=== PATIENT | male | born 1960 | race Caucasian/White ===

== ENCOUNTER → 2016-10-11 | Day surgery (SDC) | payer OTHER ==
[2016-09-26 10:22] VITALS: BMI 24.0
[~2016-10-11] VITALS: Ht 162.6 cm; Wt 65.0 kg
[~2016-10-11] MED LIST: ATROPINE SULFATE 0.1 MG/ML 5ML SYR IV PRN; BUPIVACAINE/EPINEPHRINE 0.5% MPF 1:200,000 30 ML VIAL ONE; CEFAZOLIN 2000 MG/60 ML D5W IV SCH; DEXAMETHASONE SOD INJ 4 MG/ML VIAL ONE; ESMOLOL HCL 10 MG/ML 10 ML VIAL ONE; EpHEDrine SULFATE INJ 50 MG/ML AMP IV PRN; FENTANYL CITRATE INJ 50 MCG/1 ML 2 ML VIAL IV PRN; FENTANYL CITRATE INJ 50 MCG/1 ML 2 ML VIAL ONE; GLYCOPYRROLATE INJ 0.2 MG/ML VIAL ONE; HEPARIN SOD 5000 UNIT/0.5 ML CARP SQ SCH; HYDR-5688 PO; HYDROCODONE/ACETAMOPHEN 5/325MG TAB PO PRN; HYDROmorphone INJ 1 MG/ML SYR IV PRN; KETOROLAC TROMETHAMINE 30 MG/ML VIAL IV. PRN; KETOROLAC TROMETHAMINE 30 MG/ML VIAL ONE; LABETALOL HCL IV 5 MG/ML 20ML IV PRN; LACTATED RINGER'S 1000ML 1,000 ML IV SCH; LIDOCAINE HCL 2% 2 ML VIAL (20MG/ML) ONE; MEPERIDINE HCL 25 MG/ML CARP IV PRN; MIDAZOLAM HCL 1 MG/ML 2ML VIAL ONE; NEOSTIGMINE METHYLSULFATE 5 MG/5 ML SYR ONE; ONDANSETRON INJ 2 MG/ML 2 ML VIAL IV PRN; ONDANSETRON INJ 2 MG/ML 2 ML VIAL ONE; PRLSR20 PO; PROPOFOL IV EMULSION 10 MG/ML 20 ML VIAL IV ONE; ROCURONIUM BROMID 50MG/5ML SYR ONE; SODIUM CHLORIDE 0.9% 1000ML 1,000 ML IV SCH
[2016-10-11 05:59] VITALS: BP 157/89; PULSE 49; TEMP 36.6; O2SAT 100; Ht 162.6 cm; Wt 65.0 kg
--- NOTE | 2016-10-11 06:44 | History and Physical ---
History & Physical Date Oct 11, 2016. Chief Complaint RUQ pain for several months. US shows gallstones History of Present Illness The patient is a 55 year old male with complaints of Additional History Hepatic Disease: No Endocrine Disorder: No Kidney Disease: No Hypertension: No Heart Disease: No Bleeding Tendencies: No Infectious Diseases: No Allergies Coded Allergies: No Known Allergies (Unverified , 10/11/16) Home Medications Scheduled Omeprazole (Prilosec), 20 MG PO QAM Physical Examination Skin: warm/dry Eyes: normal inspection, EOMI Head: normocephalic Neck: supple, no adenopathy Respiratory/Chest: normal breath sounds, no respiratory distress Cardiovascular: regular rate, rhythm Abdomen / GI: normal bowel sounds, non tender Extremities: normal inspection Neurologic/Psych: alert, oriented x 3 Diagnosis symptomatic cholecystitis discussed options. I do suspect symptoms are from gallstones discussed risks ok to proceed.
--- NOTE | 2016-10-11 07:16 | Discharge Instructions ---
Discharge Instructions Date of Service Oct 11, 2016. Admission Reason for Admission: Cholelithiasis Discharge Discharge Diagnosis / Problem: Cholelithiasis Discharge Goals Goal(s): Decrease discomfort, Improve function Activity Recommendations Activity Limitations: as noted below Lifting Limitations: no more than 10 pounds Exercise/Sports Limitations: as tolerated Shower/Bathe: tomorrow . Instructions / Follow-Up Instructions / Follow-Up Have surgical incisions checked post-operatively. If patient is able, please follow-up with Dr. Dominguez in the office in 1-2 weeks. Any questions, please contact Dr. Dominguez's office at [phone], Current Hospital Diet Patient's current hospital diet: Discharge Diet Recommended Diet: Regular Diet Pending Studies Studies pending at discharge: no Medical Emergencies . Who to Call and When: Medical Emergencies: If at any time you feel your situation is an emergency, please call 911 immediately. . Non-Emergent Contact Non-Emergency issues call your: Primary Care Provider, Surgeon Call Non-Emergent contact if: temperature is above 101, your pain is not controlled, wound has increased drainage, wound has increased redness . "Provider Documentation" section prepared by Amparo Thomas. VTE Core Measure Inpt VTE Proph given/why not?: Unfractionated heparin SQ, SCD's
--- NOTE | 2016-10-11 08:50 | [facility] Operative Report ---
Operative Report Operative Date Oct 11, 2016. Pre-Operative Diagnosis Symptomatic Cholelithiasis Post-Operative Diagnosis same Procedure(s) Performed lap charisse Surgeon Dr Dominguez Technical Applications Scientist Surgeon(s) Amparo Thomas PA-C Estimated Blood Loss 10ml Findings chronically inflammed gallbladder Specimens A: Gallbladder Anesthesia get Complication(s) None Disposition Recovery Room / PACU I attest to the content of the Intraoperative Record and any orders documented therein. Any exceptions are noted below.
--- NOTE | 2016-10-11 09:08 | OPERATIVE REPORT ---
DATE OF OPERATION: 10/11/2016 PREOPERATIVE DIAGNOSIS: Symptomatic cholelithiasis. POSTOPERATIVE DIAGNOSIS: Same with chronic cholecystitis. PROCEDURE: Laparoscopic cholecystectomy. SURGEON: Dr. Dominguez. COMMERCIAL SALES MANAGER: Amparo Thomas PA-C. ESTIMATED BLOOD LOSS: Approximately 10 mL. COMPLICATIONS: No immediate. ANESTHESIA: General. The patient tolerated the procedure well. OPERATIVE NOTE: After informed consent was obtained, the patient taken to the operating suite, placed in supine position. After successful intubation, the abdomen was sterilely prepped and draped in usual fashion. A periumbilical incision made with an 11 blade scalpel and carried down through the soft tissue using electrocautery. The anterior rectus fascia was opened using electrocautery and two #0 Vicryl stay sutures were placed. The peritoneum was entered using blunt finger penetration. A finger sweep was performed to take down any underlying adhesions. A 12 mm Boy trocar was placed and the abdomen was insufflated to 18 mmHg. Laparoscope was inserted and the abdomen examined 360 degrees. A subxiphoid 5 mm port and 2 right upper quadrant 5 mm ports were placed under direct vision. The patient was placed in reverse Trendelenburg position and slightly airplaned to the left. The gallbladder was contracted with a large stone in the neck. It did make grasping the gallbladder somewhat difficult. We were able to grasp it and elevate it superiorly and laterally. A [place] dissector was used to take down adhesions around the neck of the gallbladder. Once we did this, I was able to identify the cystic duct and skeletonize it. It was clipped twice proximally and once distally and transected using laparoscopic scissor. Once this was done I was then able to skeletonize a posterior branch of the cystic artery. I clipped it twice proximally and once distally and transected it and then the main cystic artery, which was skeletonized, clipped and divided as well. The gallbladder was then removed from the gallbladder fossa. It did appear to be chronically inflamed. It was removed intact and placed into an EndoCatch bag. We thoroughly irrigated the right upper quadrant at the end of the procedure and controlled any small bleeding points in the gallbladder fossa using electrocautery. At the end of the case, there was adequate hemostasis and no evidence of any bile leakage. We did take a look around the abdomen and saw no other abnormalities. We irrigated the right upper quadrant, a final time and then removed the bag with the gallbladder as well as the other trocars and desufflated the abdomen. The fascia of the camera port was closed using 0 Vicryl in a [id number] fashion. All the wounds were irrigated and closed using 4-0 Monocryl. Marcaine was injected around them for postoperative analgesia and skin glue used as a dressing. The patient was awakened, extubated, and transferred to recovery in stable condition. I attest to the content of the Intraoperative Record and any orders documented therein. Any exceptio ns are noted below.
[2016-10-11 09:20] VITALS: BP 153/70; PULSE 47; TEMP 36.8; O2SAT 99
--- NOTE | 2016-10-11 09:21 | Anesthesiology Progress Note ---
Anesthesia Post Op Note Date & Time Oct 11, 2016 at 09:21 Vital Signs Pain Intensity: 3 Vital Signs Past 12 Hours Date Time Temp Pulse Resp B/P Pulse Ox O2 Delivery O2 Flow Rate FiO2 10/11/16 09:15 36.0 42 13 141/69 99 Room Air 10/11/16 09:05 42 12 134/70 100 Room Air 10/11/16 08:55 41 10 141/66 100 Mask 10 10/11/16 08:45 47 19 130/75 100 Mask 10 10/11/16 08:35 36.6 56 17 80/61 99 Mask 10 10/11/16 05:59 36.6 49 18 157/89 100 Room Air Notes Mental Status: alert / awake / arousable, participated in evaluation Pt Amnestic to Procedure: Yes Nausea / Vomiting: adequately controlled Pain: adequately controlled Airway Patency, RR, SpO2: stable & adequate BP & HR: stable & adequate Hydration State: stable & adequate Anesthetic Complications: no major complications apparent
[2016-10-11 09:50] VITALS: BP 155/74; PULSE 45; TEMP 36.7; O2SAT 99
[2016-10-11 10:20] VITALS: BP 143/70; PULSE 52; O2SAT 99
[2016-10-11 10:50] VITALS: BP 155/70; PULSE 49; TEMP 37; O2SAT 99
== END | disposition home or self-care (01) ==
LOC: C.ACU 05:42
PROVIDERS: ATTEND Surgery
DX: K81.9 Cholecystitis, unspecified (principal); K21.9 Gastro-esophageal reflux disease without esophagitis; Z98.890 Other specified postprocedural states